=== PATIENT | male | born 1980 ===

== ENCOUNTER 2022-08-04 10:43 | Outpatient (CLI) | payer OTHER ==
--- NOTE | 2022-08-04 13:26 | Ultrasound Report ---
PROCEDURE: Bladder INDICATIONS: BPH WITH LUTS TECHNIQUE: Real-time scanning was performed of the kidneys and bladder, with image documentation. COMPARISON: None FINDINGS: Prevoid volume is 310 cc. Post void residual is 10 cc. Both ureteral jets are visualized. Prostate measures 4.1 x 2.8 x 3.5 cm. IMPRESSION: Postvoid residual is 10 cc. Both ureteral jets are seen. Reviewed by: Chaitanya Espitia MD on 08/04/2022 1:24 PM PDT Approved by: Chaitanya Espitia MD on 08/04/2022 1:24 PM PDT Station ID: [id number]
== END 2022-08-04 10:44 | disposition home or self-care (01) ==
LOC: DI 10:43
PROVIDERS: ATTEND Student in an Organized Health Care Education/Training Program
DX: N40.1 Benign prostatic hyperplasia with lower urinary tract symptoms (principal)